=== PATIENT | female | born 1990 | race African-American/Black ===

== ENCOUNTER 2019-10-02 11:44 | Emergency (ER) | payer OTHER ==
[~2019-10-02] VITALS: Ht 127 cm; Wt 49.9 kg
--- NOTE | ~2019-10-02 | HC ---
[facility] [address] [place] [address] CONSULTATION Name: EDIE HELMS Room #: [facility] oTnny#: [id number] Admission: 10/02/19 Attend Phys: Discharge: 10/02/19 Date of : 89 Report #: [id number] THIS REPORT FOR: cc: [facility] - family physician/PCP [facility] family physician/PCP Tate Peng MD ~ CC: [facility] physician/PCP John Yip DATE OF SERVICE: 10/02/2019 ORTHOPEDIC CONSULTATION CHIEF COMPLAINT: Right shoulder pain. HISTORY OF PRESENT ILLNESS: The patient is a pleasant 29-year-old female seen today for evaluation of her right shoulder. The patient reports that she fell earlier today around 11 a.m. landing forward and caught herself with her outstretched right upper extremity and reports pain about the shoulder. She then proceeded by private vehicle to [facility]. Dr. Nguyễn at that point diagnosed a shoulder dislocation. Attempted closed reduction under sedation and was unsuccessful. The patient reports no obvious neurologic deficit about the shoulder. She denies any longstanding history of shoulder problems. 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 With further questioning, she reports that she had a left shoulder dislocation. Initially, this appeared to be in the remote past, but with further questioning, it sounds like it was more recently within the last week and she was given oral narcotics for that. She reports that she does not take any sort of narcotic medicine on a regular basis. PAST MEDICAL HISTORY: Significant for dwarfism. She denies other medical illnesses. PAST SURGICAL HISTORY: She reports no prior surgical procedures. CURRENT MEDICATIONS: None, although Dr. Nguyễn mention that she had oral morphine, and hydrocodone from another provider. ALLERGIES: No known drug allergies. SOCIAL HISTORY: The patient reports that she was single, was employed as a nanny, does online sales. Does not utilize tobacco. Denies alcohol use. Denies recreational drug use. REVIEW OF SYSTEMS: Negative for numbness, tingling about the right upper extremity. [facility] [address] [place] [address] CONSULTATION Name: MELAAMADOUEDIE CRAIN Room #: [facility] Tonny#: [id number] Admission: 10/02/19 Attend Phys: Discharge: 10/02/19 Date of : 89 Report #: [id number] PHYSICAL EXAMINATION: GENERAL: The patient is awake, answering questions to the best of her ability. Weight 49.9 kilos. VITAL SIGNS: __ per the ER, pulse ox 97%, BP 153/96, temperature 36.3, pulse 109, respirations 16, and O2 2 liters. EXTREMITIES: Examination of the right shoulder reveals the patient is holding this at her side in an abducted position. She has no obvious tenderness about the clavicle, AC joint, acromion and scapular spine. She is somewhat diffusely tender about the shoulder and arm, is able to minimally flex and extend the fingers and wrist, although strength is limited due to pain. She reports intact sensation over the lateral arm that is symmetric on both sides as well as symmetric sensation in the forearm, hand and fingers. The left shoulder has no pain with range of motion. The right shoulder appears to be inferiorly subluxated compared to the left. IMAGING: Prior radiographs were reviewed revealing primarily an inferior dislocation of the humeral head relative to the glenoid. No obvious fracture is noted. ASSESSMENT: Right shoulder dislocation, primarily inferior. PLAN: We reviewed treatment options for the patient's right shoulder. After discussing the risks, benefits, alternatives and complications of her injury as well as treatment, she has elected to proceed with the closed reduction. We discussed if this is unable to be obtained that we would need to schedule an MRI of her shoulder and evaluate the soft tissues to see what may be blocking this and an open reduction of the shoulder could be scheduled at a later date. We discussed that this can be reduced in a closed manner that I would likely immobilize her in a sling for approximately 4 weeks and we can initiate formal physical therapy to help regain her function. We discussed an MRI arthrogram can be considered to see if there are any other soft tissue structural damage such as labral tears or rotator cuff tears. This can be further assessed as an outpatient. The patient reported no difficulty taking hydrocodone, which can be prescribed on a p.r.n. basis post-procedure. I have offered to see her in followup or if she has a prior treating surgeon that she would prefer to see from her first dislocation. She can elect to see them. Questions were encouraged, all were answered. The patient elected to proceed with closed reduction. By: [id number] Tate Peng MD /kris
--- NOTE | ~2019-10-02 | O ---
[facility] [place] [address] [place] [address] OPERATIVE REPORT Name: EDIE HELMS [id number] Admission: 10/02/19 Attend Phys: Discharge: Date of : 89 Report #: [id number] THIS REPORT FOR: cc: [facility] - No family physician/PCP [facility] - No family physician/PCP Tate Peng MD ~ CC: [facility] physician/PCP John Yip DATE OF SERVICE: 10/02/2019 PREOPERATIVE DIAGNOSIS: Right shoulder dislocation, inferior. POSTOPERATIVE DIAGNOSIS: Right shoulder dislocation, inferior. PROCEDURE PERFORMED: Closed reduction of right shoulder. SURGEON: Tate Peng MD. ANESTHESIA: MAC. DESCRIPTION OF PROCEDURE: After proper identification of the operative site and the operative site was signed by myself. The right shoulder, after appropriate administration of the IV sedation, was gently distracted laterally and the humeral head easily reduced back into the glenoid fossa. This was very gentle reduction maneuver. Then there was felt to be symmetric range of motion as compared to the opposite shoulder. There was no obvious propensity for it to easily dislocate and an AP and axillary lateral revealed a satisfactory reduction. She was then placed within a sling and awakened. No obvious neurologic deficit was appreciated following the reduction, and the patient will be anticipated to be discharged to home with a sling. By: [id number] Tate Peng MD /nt
[2019-10-02 17:36] VITALS: BP 140/89
== END 2019-10-02 16:15 | disposition home or self-care (01) ==
LOC: ER 11:44
DX: S43.004A Unspecified dislocation of right shoulder joint, initial encounter (principal); W18.39XA Other fall on same level, initial encounter; Y93.89 Activity, other specified; Y92.89 Other specified places as the place of occurrence of the external cause; Y99.8 Other external cause status
CPT/HCPCS: 50010; 50101; 62110; 62850; 70005

== ENCOUNTER 2020-02-13 10:06 | Emergency (ER) | payer OTHER ==
[~2020-02-13] VITALS: Ht 129.5 cm; Wt 54.4 kg
[2020-02-13] MEDS ORDERED: NORCO 5-325 TA1 EAC2 PO (16:44)
[2020-02-13 17:08] VITALS: BP 143/73
== END 2020-02-13 17:10 | disposition home or self-care (01) ==
LOC: ER 10:06
DX: S43.004A Unspecified dislocation of right shoulder joint, initial encounter (principal); W01.0XXA Fall on same level from slipping, tripping and stumbling without subsequent striking against object, initial encounter; Y93.89 Activity, other specified; Y92.89 Other specified places as the place of occurrence of the external cause; Y99.8 Other external cause status